=== PATIENT | female | born 1935 | race Caucasian/White ===

== ENCOUNTER 2019-02-15 15:39 | Inpatient (IN) | payer OTHER ==
[~2019-02-15] VITALS: Ht 154.9 cm; Wt 52.6 kg
[~2019-02-15 15:39] MED LIST: BIOTIN2500 MCG PO; CALCIUM 600 +1 EAC1 PO; CENTRUM SILVER1 EAC4 PO; FISH OIL OMEGA1 EAC1 PO; LEVAQUIN 500 M500 M2 PO; METAMUCIL PAC1 UDPKT PO; MUCINEX TA600 MG/TA2 PO; MUCINEX600 MG PO; PROAIR HFA8.5 GM INH; PROBIOTIC1 EAC1 PO; SINGULAIR 10 MG10 M1 PO; SPIRIVA18 MCG INH; VITAMIN B12-FO1 EAC1 PO; VITAMIN D35000 UNIT PO
[2019-02-15 16:25] VITALS: BP 129/82
[2019-02-15 18:06] LABS: HEMATOCRIT 44.1 % (37.0-47.0); HEMOGLOBIN 14.8 gm/dL (12.0-15.0); MCH 30.5 pg (26.0-34.0); MCHC 33.6 g/dL (28.0-37.0); MCV 90.6 fL (80.0-100.0); RBC 4.87 mil/uL (4.20-5.00); RDW 14.8 % (10.5-14.5)
[2019-02-15 18:29] LABS: ALBUMIN 3.4 g/dL (3.4-5.0); ANION GAP 8 mmol/L (7-16); BUN 13 mg/dL (7-18); CHLORIDE 103 mmol/L (98-107); CO2 30 mmol/L (21-32); CREATININE 0.7 mg/dL (0.6-1.0); GLUCOSE 85 mg/dL (74-106); POTASSIUM 4.4 mmol/L (3.5-5.1); SGOT 31 U/L (15-37); SGPT 29 U/L (30-65); SODIUM 141 mmol/L (136-145); TOTAL BILIRUBIN 0.4 mg/dL (<0.1-1.0); TOTAL PROTEIN 7.1 g/dL (6.4-8.2); TROPONIN-I <0.06 ng/mL (<0.06)
--- NOTE | 2019-02-15 18:36 | NUR ---
DIRECT ADMIT FROM DR. SANTO OFFICE. ABNORMAL EKG, DENIES CP. SR ON MONITOR. WILL BE SEEN BY CARDIOLOGY. ADMISSION ASSESSMENT COMPLETED AND CONSENTS SIGNED. STAND BY ASSIST TO BR. COMERO AFTER MN FOR STRESS TEST
[2019-02-15 20:45] VITALS: BP 135/74
[2019-02-16 04:45] VITALS: BP 136/73
[2019-02-16 05:20] LABS: CHOLESTEROL 229 mg/dL (<200); HDL CHOLESTEROL 100 mg/dL (>40); LDL CHOLESTEROL 118 mg/dL (<100); SERUM ASSESSMENT Clear; TC:HDL 2.3 Ratio (Not establshd); TRIGLYCERIDE 58 mg/dL (<150); VLDL 12 mg/dL (<40)
--- NOTE | 2019-02-16 06:29 | NUR ---
Pt slept well through the night with stable VS and no c/o pain. Up to the bathroom independently. Am lab results noted, continue with POC.
--- NOTE | 2019-02-16 07:58 | HC ---
[facility] [place] [address] CONSULTATION Name: ROGER PATTERSON Room #: 203-P ADM IN M.R.#: [id number] Admission: 02/15/19 ������������������ Attend Phys: Antwan West MD Discharge: ������������������ Date of : 35 Report #: [id number] THIS REPORT FOR: //name// CC: Fernandez West DATE OF SERVICE: 02/15/2019 CARDIOLOGY CONSULTATION INDICATION: Dyspnea. HISTORY OF PRESENT ILLNESS: This is a pleasant 83-year-old female, with a past medical history significant for COPD, former tobacco use and breast cancer, presenting with an episode of dyspnea with exertion. She usually participates in dancing twice a week without any problems. Last evening, during the second dance, she developed significant dyspnea and diaphoresis. She had to sit down for her symptoms to resolve. She denies any chest pains, palpitations or vomiting. There is no history of PND or orthopnea. She denies any previous cardiac history. PAST MEDICAL HISTORY: COPD, breast cancer, status post lumpectomy. Denies any history of diabetes mellitus or hypertension. ALLERGIES: None. MEDICATIONS: Include vitamins, albuterol nebulizer, ProAir inhaler, Singulair and Spiriva. SOCIAL HISTORY: Former tobacco smoker, quit several months ago. FAMILY HISTORY: Negative for premature CAD. REVIEW OF SYSTEMS: A full 10-point review of systems performed. Only the pertinent positives and negatives are described in the HPI. PHYSICAL EXAMINATION: VITAL SIGNS: Blood pressure is 130/70, heart rate is 70 beats per minute. GENERAL APPEARANCE: This is an elderly appearing female, in no acute distress. HEENT: Normocephalic, atraumatic. Oral mucosa moist. NECK: Supple. LUNGS: Clear to auscultation. CARDIAC: Regular rate and rhythm. S1, S2 positive. ABDOMEN: Soft, nontender. EXTREMITIES: No cyanosis, no edema. [facility] [address] [place] [address] CONSULTATION Name: ROGER PATTERSON Room #: 203-P [facility] IN [facility].#: [id number] Admission: 02/15/19 ������������������ Attend Phys: Antwan West MD Discharge: ������������������ Date of : 35 Report #: [id number] LABORATORY VALUES: Pending. ASSESSMENT AND PLAN: 1. Shortness of breath with exertion. We will need to rule out silent ischemia. Await troponin levels. If negative, can proceed with a pharmacologic nuclear stress test. We will also need an echocardiogram. 2. Chronic obstructive pulmonary disease, continue with inhalers. 3. Dyspnea on exertion, as above. ��������������������������������������������� <ELECTRONICALLY SIGNED> ���������������������������������������� By: Zeke Ordonez MD ��������������������������������������������� 02/16/19 0758 [id number] 0227 Zeke Ordonez MD /nt
--- NOTE | 2019-02-16 08:14 | EKG ---
[place] [address] [address] [facility] [place] [address] ELECTROCARDIOGRAM REPORT Name: ROGER PATTERSON Room #: 203-P ADM IN M.R.#: [id number] ������������������ Admission: 02/15/19 ������������������ Attend Phys: Antwan West MD Discharge: ������������������ Date of : 35 Report #: [id number] ����������������������������������������������������������������� [id number] THIS REPORT FOR: //name// [facility] Test Date: 2019-02-15 Test Time: 17:24:01 Pat Name: ROGER PATTERSON Department: Room: 203 Gender: F Cotton Expert: Becky JONES : 1935 Requested By: Zeke Ordonez Order Number: [id number] MD: Benny Wade Measurements Intervals Edwards Rate: 67 P: 73 SD: 178 QRS: -5 QRSD: 107 T: 56 QT: 434 QTc: 458 Interpretive Statements Sinus rhythm Early R-wave progression Anterior infarct, old Compared to ECG 10/31/2015 11:05:04 anterior Q waves are more prominent Electronically Signed On 02-16-2019 8:13:49 CDT by Benny Wade [email or web address] ��������������������������������������������� <ELECTRONICALLY SIGNED> ���������������������������������������� By: Benny Wade MD, [facility] ��������������������������������������������� 02/16/19 0813 1724 1724 Benny Wade MD, [facility] /EPI
[2019-02-16 08:17] VITALS: BP 103/69
--- NOTE | 2019-02-16 09:04 | H ---
[facility] [place] [address] HISTORY AND PHYSICAL Name: ROGER PATTERSON Room #: 203-P ADM IN M.R.#: [id number] Admission: 02/15/19 ������������������ Attend Phys: Antwan West MD Discharge: ������������������ Date of : 35 Report #: [id number] THIS REPORT FOR: //name// CC: Fernandez West DATE OF SERVICE: 02/15/2019 CHIEF COMPLAINT: Shortness of breath with diaphoresis. HISTORY OF PRESENT ILLNESS: The patient is an 83-year-old female who was admitted from the office today for evaluation of shortness of breath. She was in her usual state of health yesterday while at her normal activity of dancing in a club, she developed shortness of breath, described as an inability to take a deep breath. She also had diaphoresis and a sensation of leg weakness. The symptoms were so severe she had to sit down and they lasted about 20 minutes. She then went home and used her inhaler for COPD, but that did not make any difference in her symptoms. She denied any productive cough, wheezing, or recent respiratory illness. She had a similar episode about a month ago while dancing. She described a sensation again of shortness of breath with inability to take a deep breath but at that time, it was associated with dizziness. The symptoms were not as severe as yesterday. She came to the office today and an EKG revealed some old Q-waves anteriorly and possible minimal inferior ST elevation. It was read and interpreted as a borderline abnormal EKG. PAST MEDICAL HISTORY: COPD. She was treated for breast cancer and lumpectomy in 03/2011. PAST SURGICAL HISTORY: As above. FAMILY HISTORY: Noncontributory. SOCIAL HISTORY: She has a 63-kxni-sevp history of smoking, says she quit recently. No chronic alcohol use. ALLERGIES: None. MEDICATIONS: Calcium, vitamin D, Metamucil, Centrum vitamin B12, Biotin, Mucinex, eyedrops, probiotic, albuterol nebulizer, ProAir inhaler, Singulair 10 mg, Spiriva 1 puff daily. REVIEW OF SYSTEMS: As above. She denied headache, fever, chills, productive cough, wheezing, nausea, vomiting, diarrhea, constipation, dysuria, syncope. OBJECTIVE: VITAL SIGNS: Blood pressure 131/80, temperature 98.4, pulse 71, respirations [facility] [address] [place] [address] HISTORY AND PHYSICAL Name: ROGER PATTERSON Room #: 203-P [facility] IN ..#: [id number] Admission: 02/15/19 ������������������ Attend Phys: Antwan West MD Discharge: ������������������ Date of : 35 Report #: [id number] 18, O2 sat 96% on room air in the office. GENERAL: She was awake and alert, in no distress. HEAD AND NECK: Unremarkable. LUNGS: Clear with no wheezing. HEART: Regular, no murmur. ABDOMEN: Soft, normoactive bowel sounds. EXTREMITIES: No edema. NEUROLOGIC: Motor strength 5/5. Cranial nerves intact. ASSESSMENT: 1. Chest pain. 2. Chronic obstructive pulmonary disease. 3. Dyspnea on exertion. PLAN: She is admitted to CCU for evaluation of possible unstable angina as a source of her symptoms. She does not appear to have an overt COPD exacerbation to explain her respiratory issues. I will ask the Cardiology Service to see her and lab work is pending. ��������������������������������������������� <ELECTRONICALLY SIGNED> ���������������������������������������� By: Antwan West MD ��������������������������������������������� 02/16/19 0904 1615 1640 Antwan West MD /nt
--- NOTE | 2019-02-16 11:01 | 2DMMODE ---
[facility] [place] [address] 2 D/M-MODE ECHOCARDIOGRAM Name: ROGER PATTERSON Becky Room #: 203-P ADM IN M.R.#: [id number] ������������� Admission: 02/15/19 ������������� Attend Phys: Becky Alves Discharge: ��� ������������� ��� Date of : 35 Date of Service: 02/16/19 1101 �� Report #: [id number] �������� ��������������������������������������������[id number] THIS REPORT FOR: //name// APPROVED REPORT Study performed: 02/16/2019 10:08:29 EXAM: Comprehensive 2D, Doppler, and color-flow Echocardiogram Patient Location: Echo lab Room #: [facility] Status: routine BSA: 1.50 HR: 75 bpm BP: 136/73 mmHg Rhythm: NSR Other Information Study Quality: Adequate/low parasternal window. Technically limited study due to lung disease, thin body habitus. Indications Dyspnea on exertion. COPD 2D Dimensions RVDd: 31.78 mm IVSd: 9.67 (7-11mm) LVOT Diam: 20.19 (18-24mm) LVDd: 31.62 mm PWd: 7.49 (7-11mm) LVDs: 22.71 (25-40mm) Aortic Root: 30.39 mm Volumes Left Atrial Volume (Systole) Single Plane 4CH: 23.94 mL Single Plane 2CH: 35.19 mL LA ESV Index: 21.00 mL/m2 Aortic Valve AoV Peak Vito.: 1.07 m/s AO Peak Gr.: 4.57 mmHg LVOT Max P.51 mmHg LVOT Max V: 0.79 m/s DEREK Vmax: 2.37 cm2 Mitral Valve E/A Ratio: 0.8 [facility] [address] [address] 2 D/M-MODE ECHOCARDIOGRAM Name: ROGER PATTERSON Room #: 203-P [facility]#: [id number] ������������� Admission: 02/15/19 ������������� Attend Phys: Becky Alves Discharge: ��� ������������� ��� Date of : 35 Date of Service: 02/16/19 1101 �� Report #: [id number] �������� ��������������������������������������������[id number] MV Decel. Time: 323.05 ms MV E Max Vito.: 0.56 m/s MV A Vito.: 0.73 m/s MV PHT: 93.68 ms IVRT: 72.66 ms Pulmonary Valve PV Peak Vito.: 1.05 m/s PV Peak Gr.: 4.37 mmHg Pulmonary Vein P Vein S: 0.49 m/s P Vein D: 0.29 m/s P Vein S/D Ratio: 1.69 Tricuspid Valve TR Peak Vito.: 3.06 m/s RAP Estimate: 5.00 mmHg TR Peak Gr.: 37.41 mmHg PA Pressure: 42.00 mmHg Left Ventricle The left ventricle is normal size. There is normal LV segmental wall motion. There is normal left ventricular wall thickness. Left ventricular systolic function is normal. LVEF is 55-60%. Mild diastolic dysfunction is present (impaired relaxation pattern). Right Ventricle The right ventricle is normal size. The right ventricular systolic function is normal. Atria The left atrium size is normal. The right atrium size is normal. Aortic Valve Aortic valve is trileaflet. No aortic regurgitation is present. There is no aortic valvular stenosis. Mitral Valve Mitral valve leaflets are thickened. Mild mitral regurgitation. Tricuspid Valve The tricuspid valve is normal in structure. Mild tricuspid regurgitation. Estimated PAP is 40-45mmHg. [facility] [email or web address] [address] 2 D/M-MODE ECHOCARDIOGRAM Name: ROGER PATTERSON Room #: 203-P ADM IN M.R.#: [id number] ������������� Admission: 02/15/19 ������������� Attend Phys: Becky Alves Discharge: ��� ������������� ��� Date of : 35 Date of Service: 02/16/19 1101 �� Report #: [id number] �������� ��������������������������������������������[id number] Pulmonic Valve The pulmonary valve is normal in structure. Mild pulmonic regurgitation. Great Vessels The aortic root is normal in size. Ascending aorta is not well visualized. IVC is normal in size and collapses >50% with inspiration. Pericardium There is no pericardial effusion. <Conclusion> The left ventricle is normal size. There is normal left ventricular wall thickness. Left ventricular systolic function is normal. LVEF is 55-60%. The right ventricle is normal size. The left atrium size is normal. The right atrium size is normal. Aortic valve is trileaflet. Mitral valve leaflets are thickened. Mild mitral regurgitation. Mild tricuspid regurgitation. Estimated PAP is 40-45mmHg. ��������������������������������������������� <ELECTRONICALLY SIGNED> ���������������������������������������� By: Zeke Ordonez MD ��������������������������������������������� 02/16/19 1101 1101 1101 Zeke Ordonez MD /INF
[2019-02-16 12:06] VITALS: BP 125/81
[2019-02-16] MEDS ORDERED: ASA81BEC PO (12:52)
[2019-02-16 14:16] VITALS: BP 125/81
--- NOTE | 2019-02-16 14:20 | NUR ---
Pt prepared for discharge. See discharge instructions. Dr Ordonez called and indicated that the stress test pt had done this morning was "non-ischemic". Dr West left orders for dischage if nuclear medicine test was negative. Echocardiogram also completed. Pt alert and oriented. Up in room without difficulty. No chest pain or difficulty breathing. Grandaughter here to transport home.
--- NOTE | 2019-02-18 11:54 | D ---
[facility] [place] [address] DISCHARGE SUMMARY Name: ROGER PATTERSON Room #: 203-P [facility] IN M.R.#: [id number] Admission: 02/15/19 ������������������ Attend Phys: Antwan West MD Discharge: 02/16/19 ������������������ Date of : 35 Report #: [id number] THIS REPORT FOR: //name// CC: Fernandez West DATE OF SERVICE: 02/16/2019 FINAL DIAGNOSES: 1. Chronic obstructive pulmonary disease. 2. Noncardiac chest pain. HOSPITAL COURSE: The patient was admitted with chest pain and ruled out for acute myocardial infarction. Dr. Ordonez saw her in consultation. Nuclear medicine stress test was performed. This showed no signs of ischemia. She received her usual medications and then discharged home. DISPOSITION: She will return home with diet and activity as tolerated. Follow up with Dr. Breaux in 1-2 weeks. She will resume all home medications. ��������������������������������������������� <ELECTRONICALLY SIGNED> ���������������������������������������� By: Antwan West MD ��������������������������������������������� 02/18/19 1154 0941 1005 Antwan West MD /nt
== END 2019-02-16 15:18 | disposition home or self-care (01) | DRG 192 ==
LOC: 2N 15:39 → ENTRNSPT 02-16 14:57 → EDTRNSPTSTS 02-16 14:58 → 2N 02-16 15:18
PROVIDERS: ADMIT Internal Medicine Geriatric Medicine
DX: J44.9 Chronic obstructive pulmonary disease, unspecified (principal); Z85.3 Personal history of malignant neoplasm of breast; Z87.891 Personal history of nicotine dependence; Z79.899 Other long term (current) drug therapy
CPT/HCPCS: 10081